=== PATIENT | female | born 1975 | race Two or more races ===

== ENCOUNTER 2024-09-30 00:08 | Emergency (ER) | payer MEDICAID, SELFPAY ==
[2024-09-30] VITALS (7 sets, daily range): BP systolic 94–145; BP diastolic 58–85; PULSE 92–121; RESP 16–19; TEMP 36.9–39.3; O2SAT 95–99; BMI 35.9
--- NOTE | 2024-09-30 01:24 | XR_ITS ---
Examination: Abdomen sonogram, Limited Date and time of exam: September 30, 2024 0159 hours INDICATIONS: Epigastric pain and vomiting beginning 5 hours ago Technique: Real-time barrera scale transabdominal sonographic images of the upper abdomen obtained. Findings: Normal gallbladder Normal common bile duct 0.3 cm Pancreatic head 1.4 cm Hepatomegaly 17.8 cm fatty infiltration lobular contour No focal liver lesions Normal hepatopedal portal venous flow Patent IVC IMPRESSION: Normal gallbladder Moderate hepatomegaly fatty infiltration primary hepatocellular disease
--- NOTE | 2024-09-30 01:25 | EDRME_ITS ---
Rapid Medical Screening Exam [facility] Arrival date/time: 09/30/24 00:08 48F with history of HTN and DM presents to ED with 1 day of RUQ/epigastric pain, N/V, and fevers/chills. Patient denies URI symptoms, dysuria, and diarrhea. Chief Complaint: Abdominal Pain Vital signs: Vital Signs Temperature 100.7 F H 09/30/24 01:02 Pulse Rate 108 H 09/30/24 01:02 Respiratory Rate 18 09/30/24 01:02 Blood Pressure 145/85 H 09/30/24 01:02 Pulse Oximetry (%) 97 09/30/24 01:02 Oxygen Delivery Method Room Air 09/30/24 01:02
[2024-09-30 02:05] LABS: Basophils # (Auto) 0.1 Thou/mm3 (0.0-0.2); Basophils % (Auto) 1 % (0-2.5); Eosinophils # (Auto) 0.8 Thou/mm3 (0.0-0.5); Eosinophils % (Auto) 9 % (0-10); Hematocrit 41.6 % (36.0-46.0); Hemoglobin 14.3 g/dL (12.0-16.0); Immature Granulocytes % (Auto) 0 % (0-0); Immature Granulocytes Auto 0.02 Thou/mm3 (0.00-0.00); Lymphocytes # (Auto) 1.3 Thou/mm3 (1.0-4.8); Lymphocytes % (Auto) 15 % (10-50); Mean Corpuscular HGB Conc 34.4 g/dl (31.0-37.0); Mean Corpuscular Hemoglobin 30.9 pg (25.0-35.0); Mean Corpuscular Volume 90 fL (80-100); Monocytes # (Auto) 0.5 Thou/mm3 (0.0-0.8); Monocytes % (Auto) 5 % (0-12); Neutrophils # (Auto) 6.4 Thou/mm3 (1.8-7.7); Neutrophils % (Auto) 71 % (37-80); Nucleated Red Blood Cell % 0 /100 WBC (0); Platelet Count 316 Thou/mm3 (140-440); RDW Standard Deviation 41.1 fL (36.4-46.3); Red Blood Count 4.63 Miln/mm3 (4.00-5.20)
[2024-09-30 03:08] LABS: Alanine Aminotransferase 29 U/L (10-49); Albumin, Serum 5.3 gm/dL (3.5-5.0); Alkaline Phosphatase 58 U/L (46-116); Anion Gap 11 (7-16); Aspartate Amino Transferase 24 U/L (0-34); BUN/Creatinine Ratio 29 Ratio (12-20); Blood Urea Nitrogen 20 mg/dL (9-23); Calcium 9.4 mg/dL (8.3-10.6); Calcium (Corrected) 9.4 mg/dL (8.5-10.1); Carbon Dioxide 26.5 mMol/L (20.0-31.0); Chloride 102 mMol/L (98-107); Creatinine (Component) 0.7 mg/dL (0.6-1.3); Estimated Creatinine Clearance 113.9 mL/min (>60); Glucose 239 mg/dL (74-106); Lipase 35 U/L (12-53); Osmolality,Calculated 288 (275-295); Potassium 3.5 mMol/L (3.4-5.1); Sodium 139 mMol/L (136-145); eGFR > 60 See Note
[2024-09-30 03:09] LABS: Albumin/Globulin Ratio 2.7 (1.2-2.2); Bilirubin,Total 0.7 mg/dL (0.3-1.2); Total Protein 7.3 gm/dL (5.7-8.2)
[2024-09-30] MEDS: SODIUM CHLORIDE 0.9% 1000 ML 1,000 ML 999 ML IV ×2 (03:35→09:01)
[2024-09-30] MEDS: ONDANSETRON INJ 2 MG/ML INJ 2 ML 4 MG IV (03:36)
--- NOTE | 2024-09-30 03:40 | PRELIM_ITS ---
Gallbladder ultrasound with Limited Doppler. September 30, 2024 at 0159 hours Clinical history: Right u pper quadrant/epigastric pain. Findings:The liver measures 18 cm and demonstrates increased echogenic ity with lobular contour. No intrahepatic biliary ductal dilatation. The portal vein demonstrates hep atopetal flow. The hepatic veins are patent. No gallbladder calculus, wall thickening or pericholecys tic fluid is identified. The common duct is normal in caliber at 3.3 mm. The pancreas is unremarkable to the extent visualized. The inferior vena cava is patent.Impression:No evidence of cholelithiasis, thickening, pericholecystic fluid or biliary dilatation. Fatty infiltration of the liver. Report El ectronically Signed By: Reginald Russell 09/30/2024 3:39:32 AM [EST]
[2024-09-30 03:58] LABS: Collection Type, Urine Clean Catch
[2024-09-30 04:05] LABS: HCG Qualitative,Urine Negative
[2024-09-30 04:20] LABS: Bilirubin,Urine Negative (Negative); Blood,Urine Negative (Negative); Clarity,Urine Clear (Clear/Hazy); Color,Urine Lt-Yellow (Lt Yel-Yel); Culture Indicated,Urine Not Indicated; Glucose, Urine 4+ (Negative); Ketones,Urine Negative (Negative); Leukocyte Esterase,Urine Positive (Negative); Nitrite,Urine Negative (Negative); PH,Urine 6.5 (5.0-7.0); Protein,Urine Trace (Neg - Trace); RBC,Urine 5 /hpf (0-3); Specific Gravity,Urine 1.042 (1.001-1.035); Squamous Epithelial Cell,Urine 7 /hpf (0-5); Urobilinogen,Urine Negative mg/dL (0.0-1.0); WBC,Urine 8 /hpf (0-5)
[2024-09-30 04:50] LABS: Amphetamine/Methamp Scrn,U Negative (Negative); Barbiturate Screen,Urine Negative (Negative); Benzodiazepines Screen,Urine Negative (Negative); Benzoylecgonine Screen, Ur Negative (Negative); Fentanyl Screen,Urine Negative (Negative); Opiate Screen,Urine Negative (Negative); THC Screen,Urine Negative (Negative)
--- NOTE | 2024-09-30 07:49 | XR_ITS ---
Examination: CT abdomen with intravenous contrast CT pelvis with intravenous contrast 2-D coronal reconstructions 2-D sagittal reconstructions Date and time of exam:September 30, 2024 1036 hours INDICATIONS: Generalized abdominal pain nausea vomiting beginning yesterday. CTDI: vol (mGy) 12.8 DLP: (mGycm) 802 Technique: Multiple axial sections of the abdomen and pelvis have been obtained. 64 slice high-resolution scanner used. 3 mm axial sections have been obtained, post intravenous injection 60 cc [id number] 2-D sagittal, coronal reconstructions obtained. Low dose protocols were performed. One or more of the following dose reduction techniques were used; automated exposure control, adjustment of the mA and/or KV according to patient size, use of iterative reconstruction technique. Findings: No focal liver or splenic lesions No gallstones No pancreatic or adrenal mass No renal or ureteral calculi, no hydronephrosis Normal appendix Mild small bowel fluid distention Anteverted uterus with diffusely enlarged fundus Right fundal exophytic fundal mass versus right adnexal mass axial image 196, measuring 4.2 cm Urinary bladder intact Osseous structures intact IMPRESSION: Mild small bowel ileus Enlarged fundus of the uterus 4.2 cm exophytic uterine fundal mass versus right adnexal mass, recommend pelvic sonography follow-up
[2024-09-30 08:23] LABS: Lactate (Lactic Acid) 1.5 mMol/L (0.4-2.0)
[2024-09-30] MEDS: KETOROLAC INJ 30 MG/ML VIAL 15 MG IVP (09:00)
[2024-09-30] MEDS: ACETAMINOPHEN 500 MG TABLET 1000 MG PO (09:00)
[2024-09-30 09:03] LABS: Procalcitonin 0.47 ng/ml (0.0-0.49)
--- NOTE | 2024-09-30 11:26 | PD.EDABDPN ---
ED Abdominal Pain RME/HPI General Chief Complaint: Abdominal Pain Stated complaint: ABD PAIN/N/V X 4HOURS Time seen by provider: 09/30/24 12:01 Arrival date/time: 09/30/24 00:08 RME / HPI RME / HPI narrative: 09/30/24 00:08 48F with history of HTN and DM presents to ED with 1 day of RUQ/epigastric pain, N/V, and fevers/chills. Patient denies URI symptoms, dysuria, and diarrhea. DR. MCCLELLAN MAIN ED EVALUATION 48 year old female presents to the ED for evaluation of abdominal pain beginning last night. Described as aching in sensation that is located most to epigastric region, described as aching in sensation, rating as moderate. Accompanied by nausea and vomiting. States her symptoms began shortly after eating and taking her Insulin. While in the ED began to have headache and dry mouth. No other associated symptoms or complaints. Denies fever, chills, sweating. Denies chest pain, cough, shortness of breath. Denies diarrhea, constipation. Denies dysuria, urinary frequency and urgency. Related Data Home Medications ?Medication ?Instructions ?Recorded ?Confirmed loratadine 10 mg tablet (Claritin) 10 mg PO QDAY 08/14/18 08/14/18 triamcinolone aceton 50 mg/mL in 10 ml BID 08/14/18 08/14/18 0.9 % sodium chl injection suspension Previous Rx's ?Medication ?Instructions ?Recorded fluconazole 200 mg tablet 400 mg (2 x 200 mg) PO QDAY #60 08/17/18 (Diflucan) tabs albuterol sulfate 90 mcg/actuation 2 puff inhalation QID PRN 07/04/21 aerosol inhaler shortness of breath or wheezing #8.5 grams glipizide 5 mg tablet 5 mg PO QDAY #30 tabs 07/11/21 metformin 1,000 mg tablet 1,000 mg PO BID #60 tabs 07/11/21 Allergies Allergy/AdvReac Type Severity Reaction Status Date / Time Penicillins Allergy Verified 04/15/23 13:01 Review of Systems Review of Systems Narrative Review of Systems: GEN: No fever, no chills, no weight loss EYES: No discharge, no visual changes, no pain HEENT: No ear pain, no congestion, no sore throat PULM: No shortness of breath, no cough, no congestion CV: No chest pain, no dyspnea on exertion, no palpitations GI: +N/V, no diarrhea, +pain, no constipation : No frequency, no urgency, no dysuria MUSC/SKEL: No joint pain, no back pain SKIN: No rash PSYCH: No hallucinations, no depression HEME/LYMPH: No easy bleeding or bruising tendencies NEURO: No weakness, no headache Past Medical History Past Medical History CARDIAC: Positive Hypercholesterolemia and Hypertension REPRODUCTIVE: Positive Previous Pregnancies ENDOCRINE: Positive Diabetes Mellitus Type 2 Social History SMOKING STATUS: Never smoker ED Exam Narrative Physical exam: GENERAL APPEARANCE: alert and oriented x 4, well-developed, well-nourished, grimacing HEENT: Normocephalic, atraumatic; pupils equal, round, reactive to light; EOMI; mucous membranes pink, moist; oropharynx clear NECK: Supple LUNGS: CTABL; no wheezes, no rales, no rhonchi HEART: Regular rate, regular rhythm; normal S1, S2; no murmurs ABDOMEN: mildly distended; normal BS; soft,mild diffuse tenderness, no guarding, no rebound; no masses, no organomegaly, no hernia BACK: no CVA tenderness EXTREMITIES: atraumatic; no edema NEUROLOGIC: awake; alert and oriented x4; cranial nerves II-XII grossly intact; no focal sensory or motor deficits PSYCHIATRIC: appropriate mood and affect SKIN: warm, dry, normal color; no rashes Course Quality Measures none Orders Category Date Time Status Bedside COVID-19 Antigen Test NOW Care 09/30/24 07:43 Active Bedside Influenza A&B Antigen Test NOW Care 09/30/24 07:[address] Screening NOW Care 09/30/24 07:49 Active Insert IV NOW Care 09/30/24 01:[address] abdomen pelvis w con Stat Exams 09/30/24 07:49 Completed US gall bladder Stat Exams 09/30/24 01:24 Completed Blood Culture (Lab) Stat Lab 09/30/24 08:08 Received CBC Stat Lab 09/30/24 01:40 Completed CMP [Comprehensive Metabolic Panel] Stat Lab 09/30/24 01:40 Completed Drug Screen,Urine Stat Lab 09/30/24 03:53 Completed HCG Qualitative,Urine Stat Lab 09/30/24 03:53 Completed Lactate (Lactic Acid) Stat Lab 09/30/24 08:08 Completed Lipase Stat Lab 09/30/24 01:40 Completed Procalcitonin Stat Lab 09/30/24 08:08 Completed Urinalysis, C/S if Indicated Stat Lab 09/30/24 03:53 Completed Acetaminophen Tab [Tylenol ES Tab] Med 09/30/24 07:43 Discontinued 1,000 mg PO X1 ONE Ketorolac Inj [Toradol Inj] Med 09/30/24 07:51 Discontinued 15 mg IVP X1 ONE Ondansetron Inj [Zofran Inj] Med 09/30/24 01:24 Discontinued 4 mg IV X1 ONE Sodium Chloride 0.9% 1000 ml [Ns] 1,000 ml Med 09/30/24 01:24 Discontinued IV 999 mls/hr Sodium Chloride 0.9% 1000 ml [Ns] 1,000 ml Med 09/30/24 07:42 Discontinued IV 999 mls/hr Reevaluation(s) Reevaluation #1: Patient remains clinically stable throughout the emergency department visit. Patient tolerated po trial. We reviewed all the results, analysis, and treatment plans. Patient is amenable to discharge. Strict return precautions were outlined. Patient was discharged in stable condition. Time: 12:50 Vital Signs Vital signs: Vital Signs Temperature 100.7 F H 09/30/24 01:02 Pulse Rate 108 H 09/30/24 01:02 Respiratory Rate 18 09/30/24 01:02 Blood Pressure 145/85 H 09/30/24 01:02 Pulse Oximetry (%) 97 09/30/24 01:02 Oxygen Delivery Method Room Air 09/30/24 01:02 Pulse ox is 97% on room air which is adequate. Abdominal Pain MDM Patient data External records reviewed:: [facility] previous records (I reviewed ED visit on 04/15/2023 for abdominal pain) Clinical information provided by:: patient Social determinants that could affect healthcare access:: none Patient has the following chronic illnesses:: HTN, DM How is presenting disease/condition affected by chronic disease/condition?: exacerbated by Evaluation data The following diagnostics were reviewed and interpreted by me:: lab results and radiology exam(s) Lab and/or radiology exams considered but not ordered:: None Interpretation Summary: Ordering Physician: Gabe Arroyo PA-C Date of Service: 09/30/24 Procedure(s): US gall bladder Accession Number(s): [id number] cc: Deyanira Ybarra; Sami Montes MD; Gabe Arroyo PA-C~ Examination: Abdomen sonogram, Limited Date and time of exam: September 30, 2024 0159 hours INDICATIONS: Epigastric pain and vomiting beginning 5 hours ago Technique: Real-time barrera scale transabdominal sonographic images of the upper abdomen obtained. Findings: Normal gallbladder Normal common bile duct 0.3 cm Pancreatic head 1.4 cm Hepatomegaly 17.8 cm fatty infiltration lobular contour No focal liver lesions Normal hepatopedal portal venous flow Patent IVC IMPRESSION: Normal gallbladder Moderate hepatomegaly fatty infiltration primary hepatocellular disease Dictated By: Sami Montes MD Signed By: <Electronically signed by Sami Montes MD in OV> 09/30/24 1014 DD/ 1014 TD/TT: 09/30/24 1014 Airline Reservationist: HANG Ordering Physician: Gabby Mcclellan MD Date of Service: 09/30/24 Procedure(s): CT abdomen pelvis w con Accession Number(s): [id number] cc: Deyanira Ybarra; Sami Montes MD; Gabby Mcclellan MD~ Examination: CT abdomen with intravenous contrast CT pelvis with intravenous contrast 2-D coronal reconstructions 2-D sagittal reconstructions Date and time of exam:September 30, 2024 1036 hours INDICATIONS: Generalized abdominal pain nausea vomiting beginning yesterday. CTDI: vol (mGy) 12.8 DLP: (mGycm) 802 Technique: Multiple axial sections of the abdomen and pelvis have been obtained. 64 slice high-resolution scanner used. 3 mm axial sections have been obtained, post intravenous injection 60 cc [id number] 2-D sagittal, coronal reconstructions obtained. Low dose protocols were performed. One or more of the following dose reduction techniques were used; automated exposure control, adjustment of the mA and/or KV according to patient size, use of iterative reconstruction technique. Findings: No focal liver or splenic lesions No gallstones No pancreatic or adrenal mass No renal or ureteral calculi, no hydronephrosis Normal appendix Mild small bowel fluid distention Anteverted uterus with diffusely enlarged fundus Right fundal exophytic fundal mass versus right adnexal mass axial image 196, measuring 4.2 cm Urinary bladder intact Osseous structures intact IMPRESSION: Mild small bowel ileus Enlarged fundus of the uterus 4.2 cm exophytic uterine fundal mass versus right adnexal mass, recommend pelvic sonography follow-up Dictated By: Sami Montes MD Signed By: <Electronically signed by Sami Montes MD in OV> 09/30/24 1151 DD/ 1149 TD/TT: 09/30/24 1149 Airline Reservationist: HANG Medications / Prescriptions Medications or Prescriptions considered but not ordered:: none Medication administrations:: Medication Administration History Discontinued Medications Acetaminophen (Acetaminophen 500 Mg Tablet) 1,000 mg PO X1 ONE Stop: 09/30/24 07:44 Last Admin: 09/30/24 09:00 Dose: 1,000 mg Documented By: Sodium Chloride (Ns) 1,000 mls @ 999 mls/hr IV .Q1H1M ONE Stop: 09/30/24 02:24 Last Infusion: 09/30/24 05:35 Dose: Infused Documented By: Admin: 09/30/24 03:35 Dose: 999 mls/hr Documented By: SE Sodium Chloride (Ns) 1,000 mls @ 999 mls/hr IV .Q1H1M ONE Stop: 09/30/24 08:42 Last Infusion: 09/30/24 10:06 Dose: Infused Documented By: Admin: 09/30/24 09:01 Dose: 999 mls/hr Documented By: Ketorolac Tromethamine (Ketorolac Inj 30 Mg/Ml Vial) 15 mg IVP X1 ONE Stop: 09/30/24 07:52 Last Admin: 09/30/24 09:00 Dose: 15 mg Documented By: Ondansetron HCl (Ondansetron Inj 2 Mg/Ml Inj 2 Ml) 4 mg IV X1 ONE; Protocol Stop: 09/30/24 01:25 Last Admin: 09/30/24 03:36 Dose: 4 mg Documented By: SE see above Consultations Consultation(s) initiated? (list below): No Diagnosis Differential diagnosis abdominal pain: abdominal pain, constipation and gastroenteritis Most likely diagnosis given after review of the tests above:: Enteritis Enlarged uterus Admission Indicated Admission indicated?: not indicated Admission Request Was there a request for admission?: No Disposition Plan Disposition Plan: Discharge Discharge Attestation Discharge Attestation: The patient and all family members were given an opportunity to ask questions and understood the discharge instructions. Discharge instructions specifically effects, indications for sooner follow up or return to the emergency department, and the expected course of current diagnosis. Patient condition: Stable Discharge Plan Plan Patient Disposition: HOME (Self Care) Prescriptions/Referrals Prescriptions/Med Rec: No Action loratadine [Claritin] 10 mg Tablet 10 mg PO QDAY triamcinolone aceton-0.9% NaCl 50 mg/mL Suspension 10 ml BID fluconazole [Diflucan] 200 mg tablet 400 mg PO QDAY Qty: 60 0RF albuterol sulfate 90 mcg/actuation HFA aerosol inhaler 2 puff inhalation QID PRN (Reason: shortness of breath or wheezing) Qty: 8.5 0RF metformin 1,000 mg tablet 1,000 mg PO BID Qty: 60 0RF glipizide 5 mg tablet 5 mg PO QDAY Qty: 30 0RF Referrals: Deyanira Ybarra FNP-C [Primary Care Provider] - In 1 week Problem List Clinical Impression: Enteritis, Enlarged uterus Patient/Caregiver Discharge Instructions Education Materials: Female Reproductive Anatomy, ED Gastroenteritis, Noninfectious Additional Instructions: Follow up with your primary care doctor for pelvic ultrasound for evaluation of enlarged uterus. Print Language: Paraguayan Stand Alone Forms: Vashti Award Info., Patient Portal Info Letter
== END 2024-09-30 12:59 | disposition home or self-care (01) ==
PROVIDERS: Physician Assistant; Emergency Provider Emergency Medicine; PCP Nurse Practitioner Family
DX: K52.9 Noninfective gastroenteritis and colitis, unspecified (principal); E11.9 Type 2 diabetes mellitus without complications; K56.7 Ileus, unspecified; N85.2 Hypertrophy of uterus; I10 Essential (primary) hypertension
CPT/HCPCS: 36415; 74177; 76705; 80053; 80307; 81001; 81025; 83605; 83690; 84145; 85025; 87040; 87400; 87811; 96361; 96374; 96375; 99285; A4649; J1885; J2405; J7030; Q9967; A9270

== ENCOUNTER 2025-09-22 16:26 | Emergency (ER) | payer MEDICAID, SELFPAY ==
[2025-09-22 16:55] VITALS: BP 129/75; PULSE 98; RESP 18; TEMP 37.2; O2SAT 96; BMI 36.6
--- NOTE | 2025-09-22 17:53 | PD.EDRME ---
Rapid Medical Screening Exam RME Arrival date/time: 09/22/25 16:26 49-year-old female presents to the emergency department today for complaints of generalized bodyaches and fever Chief Complaint: Fever Time Seen by Provider: 09/22/25 17:15 Vital signs: Vital Signs Temperature 98.9 F 09/22/25 16:55 Pulse Rate 98 09/22/25 16:55 Respiratory Rate 18 09/22/25 16:55 Blood Pressure 129/75 09/22/25 16:55 Pulse Oximetry (%) 96 09/22/25 16:55 Oxygen Delivery Method Room Air 09/22/25 16:55 Vital signs reviewed by provider: Yes Exam: On exam patient does not appear ill or toxic no acute distress Clinical Impression: Lab work ordered
--- NOTE | 2025-09-22 18:40 | PD.EDFEVER ---
ED Fever RME/HPI General Chief Complaint: Fever Stated Complaint: Fever,cough, body aches and GUIDRY Time Seen by Provider: 09/22/25 17:15 Arrival date/time: 09/22/25 16:26 RME / HPI RME / HPI Narrative: 09/22/25 16:26 49-year-old female presents to the emergency department today for complaints of generalized bodyaches and fever DR. GORE MAIN ED EVALUATION: Patient presents with flu-like symptoms, including generalized myalgia, scantly non-productive cough, generalized fatigue, mild sore throat. Denies dysuria, vomiting, and diarrhea. PMH: HLD, HTN, Type II DM PSH: Unremarkable Allergies: Penicillins Social: Occasional alcohol, no tobacco or illicit drug abuse Exam: On exam patient does not appear ill or toxic no acute distress Impression: Lab work ordered Related Data Home Medications ?Medication ?Instructions ?Recorded ?Confirmed loratadine 10 mg tablet (Claritin) 10 mg PO QDAY 08/14/18 08/14/18 triamcinolone aceton 50 mg/mL in 10 ml BID 08/14/18 08/14/18 0.9 % sodium chl injection suspension Previous Rx's ?Medication ?Instructions ?Recorded fluconazole 200 mg tablet 400 mg (2 x 200 mg) PO QDAY #60 08/17/18 (Diflucan) tabs albuterol sulfate 90 mcg/actuation 2 puff inhalation QID PRN 07/04/21 aerosol inhaler shortness of breath or wheezing #8.5 grams glipizide 5 mg tablet 5 mg PO QDAY #30 tabs 07/11/21 metformin 1,000 mg tablet 1,000 mg PO BID #60 tabs 07/11/21 hydrocodone 5 mg-acetaminophen 325 1 tab PO Q8H PRN pain #16 tabs 09/22/25 mg tablet naproxen 250 mg tablet 250 mg PO BID PRN pain #10 tabs 09/22/25 promethazine 12.5 mg tablet 12.5 mg PO TID PRN Headache/nausea 09/22/25 vomiting #14 tabs Allergies Allergy/AdvReac Type Severity Reaction Status Date / Time Penicillins Allergy Verified 09/22/25 16:30 Review of Systems Review of Systems Systems Reviewed: All systems reviewed, normal except as documented Past Medical History Past Medical History CARDIAC: Positive Hypercholesterolemia and Hypertension REPRODUCTIVE: Positive Previous Pregnancies ENDOCRINE: Positive Diabetes Mellitus Type 2 Physical Exam Narrative Physical exam: GEN. APPEARANCE: The patient is alert awake oriented X-3 under no distress, lying down comfortably, does not look ill/toxic. Patient has good eye contact. Patient is cooperative. Occasional non-productive cough. VITALS: All vitals were reviewed and the pulse ox is 96%, which is normal according to my interpretation HEENT: Normocephalic, atraumatic and nontender. Pupils are equal and reactive. Oral mucosa is moist. Mildly erythematous posterior pharynx with scattered vesicles, no exudates or tonsillar hypertrophy. NECK: Supple, nontender, no meningismus, no JVD. There is no thyromegaly. BL submandibular adenopathy. CHEST: Nontender on palpation no deformity and no crepitus. CARDIOVASCULAR: Mildly tachycardic, no murmur or gallop rub or extra beats. LUNGS: Clear to auscultation bilaterally with symmetrical chest rise. No laboring tachypnea or wheezing. No intercostal subcostal retraction. No rales and no rhonchi. ABDOMEN: Soft, flat, nontender to palpation, no guarding or rebound tenderness. There are no abnormal masses palpated. No pulsatile masses or bruits. Active and normal bowel sounds. EXTREMITIES: Normal inspection and palpation. No edema. No cyanosis. Patient is able to move all 4 extremities well SKIN: Warm and dry, no rashes noted. MUSCULOSKELETAL: No lumbar or midline bony tenderness. There is no CVA tenderness. No paraspinal muscle spasm or tenderness. NEURO: Cranial nerves II through XII grossly intact. There are no focal neurologic deficits noted. GCS is 15 PSYCHIATRIC: Patient is in normal mood and affect, cooperative. LYMPHATICS: No major lymphadenopathy noted. ED Exam Narrative Physical exam: See above. Course Quality Measures none Orders Category Date Time Status Bedside Blood Glucose NOW Care 09/22/25 17:15 Active Bedside Influenza A&B Antigen Test NOW Care 09/22/25 17:15 Completed HCG Qualitative,Urine Stat Lab 09/22/25 17:52 Ordered UA, C/S IF [Urinalysis, C/S if Indicated] Stat Lab 09/22/25 17:52 Ordered Vital Signs Vital signs: Vital Signs Temperature 98.9 F 09/22/25 16:55 Pulse Rate 98 09/22/25 16:55 Respiratory Rate 18 09/22/25 16:55 Blood Pressure 129/75 09/22/25 16:55 Pulse Oximetry (%) 96 09/22/25 16:55 Oxygen Delivery Method Room Air 09/22/25 16:55 Fever MDM Narrative MDM Narrative:: Scribe Attestation: IEstefani, am scribing for and in the presence of Dr. Gore. Provider Notation: Although this document has been carefully reviewed, there may still be some phonetic and other typographical errors. These errors are purely grammatical due to imperfections in the software program and should not be construed in any way to compromise the substance of the patient's medical care during this visit. Patient presents with flu-like symptoms, including generalized myalgia, scantly non-productive cough, generalized fatigue, mild sore throat. Denies dysuria, vomiting, and diarrhea. Please see PE findings. Patient with flu-like symptoms, although negative for Influenza. Will treat for likely viral syndrome. Patient data External records reviewed:: [facility] previous records (Reviewed prior ED records from 09/30/24. Patient was seen for Enlarged uterus.) Clinical information provided by:: patient Social determinants that could affect healthcare access:: none Patient has the following chronic illnesses:: HLD, HTN, Type II DM How is presenting disease/condition affected by chronic disease/condition?: exacerbated by Evaluation data The following diagnostics were reviewed and interpreted by me:: other (specify) (N/A) Lab and/or radiology exams considered but not ordered:: None Interpretation Summary: N/A Medications / Prescriptions Medications or Prescriptions considered but not ordered:: None Medication administrations:: See above if any. Consultations Consultation(s) initiated? (list below): No Diagnosis Fever Differential Diagnosis: cellulitis, fever of unknown origin, gastroenteritis, community acquired pneumonia, pyelonephritis, viral infection, sepsis and influenza Most likely diagnosis given after review of the tests above:: Fever, Viral Infection Admission Indicated Admission indicated?: not indicated Explain why admission is indicated or not indicated:: Patient does not meet admission criteria. Admission Request Was there a request for admission?: No Disposition Plan Disposition Plan: Discharge Discharge Attestation Discharge Attestation: The patient and all family members were given an opportunity to ask questions and understood the discharge instructions. Discharge instructions specifically effects, indications for sooner follow up or return to the emergency department, and the expected course of current diagnosis. Patient condition: Stable Discharge Plan Plan Patient Disposition: HOME (Self Care) Prescriptions/Referrals Prescriptions/Med Rec: New hydrocodone-acetaminophen 5-325 mg tablet 1 tab PO Q8H MDD 3 tabs PRN (Reason: pain) Qty: 16 0RF promethazine 12.5 mg tablet 12.5 mg PO TID PRN (Reason: Headache/nausea vomiting) Qty: 14 0RF naproxen 250 mg tablet 250 mg PO BID PRN (Reason: pain) Qty: 10 0RF Rx Instructions: With food No Action loratadine [Claritin] 10 mg Tablet 10 mg PO QDAY triamcinolone aceton-0.9% NaCl 50 mg/mL Suspension 10 ml BID fluconazole [Diflucan] 200 mg tablet 400 mg PO QDAY Qty: 60 0RF albuterol sulfate 90 mcg/actuation HFA aerosol inhaler 2 puff inhalation QID PRN (Reason: shortness of breath or wheezing) Qty: 8.5 0RF metformin 1,000 mg tablet 1,000 mg PO BID Qty: 60 0RF glipizide 5 mg tablet 5 mg PO QDAY Qty: 30 0RF Referrals: Baljeet Garibay MD [Primary Care Provider, Family Practice] - In 1 week Problem List Clinical Impression: Fever, Viral infection Patient/Caregiver Discharge Instructions Education Materials: ED Viral Syndrome (Adult) Additional Instructions: Force fluids/maintain adequate rest/medications as directed/quarantine for 5 days. Return if worsening Print Language: Croatian Stand Alone Forms: Vashti Award Info., Patient Portal Info Letter
[2025-09-22 19:47] VITALS: BP 122/72; PULSE 72; RESP 16; TEMP 36.7; O2SAT 98
== END 2025-09-22 19:49 | disposition home or self-care (01) ==
PROVIDERS: Emergency Provider Physician Assistant; PCP Family Medicine
DX: B34.9 Viral infection, unspecified (principal)
CPT/HCPCS: 80053; 81001; 81025; 83605; 83690; 85025; 87502; 99282